=== PATIENT | male | born 1945 | race African-American/Black ===

== ENCOUNTER 2017-05-28 06:06 | Emergency (ER) | payer MEDICARE ==
[~2017-05-28] VITALS: Ht 175.3 cm; Wt 149.7 kg
[~2017-05-28 06:06] MED LIST: ALDACTONE25 MG PO; BENAZEPRIL HCL20 MG PO; COREG6.25 MG PO; DOXAZOSIN MESYLA2 MG PO; FISH OIL 1,001000 M2 PO; HYDROCHLOROTHIA25 M2 PO; MULTIVITAMIN PO; NORCO 5-325 TA1 EACH PO; TIMOPTIC2.5 M1 OPHTHALMIC; XALATAN2.5 ML OPHTHALMIC
[2017-05-28] MEDS ORDERED: COMBIGAN EYE DR10 ML (06:20)
[2017-05-28] MEDS ORDERED: LUMIGAN2.5 M1 (06:23)
[2017-05-28] MEDS ORDERED: AMARYL2 MG (06:23)
[2017-05-28] MEDS ORDERED: ATORVASTIN (06:24)
[2017-05-28 06:43] LABS: ABSOLUTE EOSINOPHILS 0.1 thou/uL (0.0-0.7); ABSOLUTE LYMPHOCYTES 1.7 thou/uL (0.8-5.3); ABSOLUTE MONOCYTES 0.5 thou/uL (0.0-1.2); ABSOLUTE NEUTROPHILS 3.8 thou/uL (1.6-8.1); BASOPHILS 0.5 %; EOSINOPHILS 1.6 %; HEMATOCRIT 35.3 % (42.0-52.0); HEMOGLOBIN 11.6 gm/dL (14.0-18.0); LYMPHOCYTES 27.2 %; MCH 29.7 pg (26.0-34.0); MCV 90.1 fL (80.0-100.0); MONOCYTES 8.2 %; MPV 7.6 fl. (7.2-11.1); NUCLEATED RBCS 0 /100WBC; PLATELET COUNT* 250 thou/uL (150-400); POLYS 62.5 %; RBC 3.92 mil/uL (4.50-6.00); RDW-CV 12.9 % (10.5-14.5); WBC 6.1 thou/uL (4.0-11.0)
[2017-05-28 06:48] LABS: ANION GAP 7 mmol/L (7-16); BUN 29 mg/dL (7-18); CALCIUM 9.1 mg/dL (8.5-10.1); CHLORIDE 99 mmol/L (98-107); CO2 27 mmol/L (21-32); CREATININE 1.4 mg/dL (0.6-1.3); GLUCOSE 300 mg/dL (70-99); POTASSIUM 4.8 mmol/L (3.5-5.1); SODIUM 133 mmol/L (136-145)
[2017-05-28 07:07] LABS: ALBUMIN 3.6 g/dL (3.4-5.0); ALKALINE PHOSPHATASE 125 U/L (46-116); LIPASE 113 U/L (73-393); SGOT 18 U/L (15-37); SGPT 31 U/L (30-65); TOTAL BILIRUBIN 0.3 mg/dL (<0.1-1.0); TOTAL PROTEIN 7.7 g/dL (6.4-8.2); TROPONIN-I LEVEL <0.06 ng/mL (<0.06)
[2017-05-28 07:41] LABS: URINE BILIRUBIN NEGATIVE (Negative); URINE BLOOD NEGATIVE (Negative); URINE CLARITY CLEAR; URINE COLOR YELLOW; URINE GLUCOSE-RANDOM 2+ (Negative); URINE KETONES NEGATIVE (Negative); URINE LEUKOCYTES-REFLEX NEGATIVE (Negative); URINE NITRITE-REFLEX NEGATIVE (Negative); URINE PROTEIN NEGATIVE (Negative); URINE UROBILINOGEN 0.2 E.U./dl (0.2-1.0)
[2017-05-28] MEDS ORDERED: PERCOCET 5-3251 EACH PO (08:21)
[2017-05-28 08:30] VITALS: BP 125/53
--- NOTE | 2017-05-28 16:00 | EKG ---
[place] [address] ELECTROCARDIOGRAM REPORT Name: YOKO JIMENEZ III [facility] [id number] Admission: 05/28/17 Attend Phys: Discharge: 05/28/17 Date of : 49 Report #: [id number] THIS REPORT FOR: //name// [facility] ED Test Date: 2017-05-28 Test Time: 06:42:16 Pat Name: YOKO JIMENEZ Department: Room: Gender: Book Shelver: LIANA Galvin : 1945 Requested By: Aftab Kruse Order Number: [id number] MD: Milind Dill Measurements Intervals Hagerman Rate: 81 P: 39 WA: 198 QRS: -51 QRSD: 118 T: 10 QT: 388 QTc: 451 Interpretive Statements Sinus rhythm 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
== END 2017-05-28 08:31 | disposition home or self-care (01) ==
LOC: M.ERS 06:06
PROVIDERS: Emergency Medicine Emergency Medical Services
DX: M54.5 Low back pain (principal); I10 Essential (primary) hypertension; G47.30 Sleep apnea, unspecified; M19.90 Unspecified osteoarthritis, unspecified site; N40.0 Benign prostatic hyperplasia without lower urinary tract symptoms; E11.9 Type 2 diabetes mellitus without complications; Z96.653 Presence of artificial knee joint, bilateral; Z85.46 Personal history of malignant neoplasm of prostate